=== PATIENT | male | born 1985 | race African-American/Black ===

== ENCOUNTER 2021-05-20 21:32 | Emergency (ER) | payer MEDICAID ==
[2021-05-20 22:59] LABS: ANION GAP 11.4 mEq/L (7-13)
--- NOTE | 2021-05-20 23:08 | EDM.PDOC ---
ED HPI GENERAL MEDICAL PROBLEM - General Chief Complaint: Fever Stated Complaint: FEVER,MUCLE ACHES Time Seen by Provider: 05/20/21 22:46 Source of Information: Reports: Patient, RN, RN Notes Reviewed History Limitations: Reports: No Limitations - History of Present Illness INITIAL COMMENTS - FREE TEXT/NARRATIVE: Ash is a 35 y/o male with a history of HTN and diabetes mellitus Type II who presents to the ED via personal vehicle with complaint of muscle aches and fever. The patient reports his symptoms began two days ago and have progressively worsened in that time. Additionally, he notes transient dry cough and left lateral neck pain with left lateral rotation. The patient notes his Tmax was today upon triage with 102, previous temperature was 101 this afternoon. He denies headache, vision changes, sore throat, sinus congestions, chest pain/pressure, shortness of breath, nausea, vomiting, abdominal pain, diarrhea, constipation, or dysuria. He has taken no medications for his symptoms. The patient notes he is prescribed Lisinopril which he has not been taking. - Related Data Allergies Allergy/AdvReac Type Severity Reaction Status Date / Time No Known Allergies Allergy Verified 05/20/21 22:15 Past Medical History Cardiovascular History: Reports: High Cholesterol, Hypertension Endocrine/Metabolic History: Reports: Diabetes, Type II Social & Family History - Tobacco Use Tobacco Use Status *Q: Never Tobacco User Second Hand Smoke Exposure: Yes ED ROS GENERAL - Review of Systems Review Of Systems: Comprehensive ROS is negative, except as noted in HPI. ED EXAM, GENERAL - Physical Exam Exam: See Below Exam Limited By: No Limitations General Appearance: Alert, No Apparent Distress Eye Exam: Bilateral Eye: EOMI, Normal Inspection, PERRL (3mm) Ears: Normal External Exam, Normal Canal, Hearing Grossly Normal, Normal TMs Ear Exam: Bilateral Ear: Auricle Normal, Canal Normal, TM normal Nose: Normal Inspection, Normal Mucosa, No Blood Throat/Mouth: Normal Voice, No Airway Compromise. No: Normal Oropharynx (Dry mucous membranes) Head: Atraumatic, Normocephalic Neck: Normal Inspection, Supple, Non-Tender, Full Range of Motion. No: Lymphadenopathy (L), Lymphadenopathy (R) Respiratory/Chest: No Respiratory Distress, Lungs Clear, Normal Breath Sounds, No Accessory Muscle Use, Chest Non-Tender. No: Crackles, Rales, Rhonchi, Wheezing, Stridor Cardiovascular: Normal Peripheral Pulses, Regular Rate, Rhythm, No Edema, No Gallop, No JVD, No Murmur, No Rub, Tachycardia Peripheral Pulses: 2+: Radial (L), Radial (R) GI/Abdominal: Normal Bowel Sounds, Soft, Non-Tender, No Distention, No Abnormal Bruit, No Mass, Pelvis Stable (Male) Exam: Deferred Rectal (Males) Exam: Deferred Back Exam: Normal Inspection, Full Range of Motion Extremities: Normal Inspection, Normal Range of Motion, Non-Tender, No Pedal Edema, Normal Capillary Refill Neurological: Alert, Oriented, CN II-XII Intact, Normal Cognition, Normal Gait, No Motor/Sensory Deficits Psychiatric: Normal Affect, Normal Mood Skin Exam: Warm, Dry, Intact, Normal Color, No Rash. No: Cyanosis, Jaundice, Mottled, Pallor Lymphatic: No Adenopathy Course - Vital Signs Last Recorded V/S: Last Vital Signs Temp 102.3 F H 05/20/21 22:07 Pulse 113 H 05/20/21 22:07 Resp 20 05/20/21 22:07 BP 181/111 H 05/20/21 22:07 Pulse Ox 98 05/20/21 22:07 - Orders/Labs/Meds Labs: Laboratory Tests 05/20/21 05/20/21 05/20/21 Range/Units 21:55 22:30 22:30 WBC 5.8 (5.0-10.0) 10^3/uL RBC 5.14 (4.6-6.2) 10^6/uL Hgb 15.4 (14.0-18.0) g/dL Hct 46.1 (40.0-54.0) % MCV 89.7 (80-100) fL MCH 30.0 (27.0-34.0) pg MCHC 33.4 (33.0-35.0) g/dL Plt Count 183 (150-450) 10^3/uL Neut % (Auto) 58.0 (42.2-75.2) % Lymph % (Auto) 25.1 (20.5-50.1) % [place] % (Auto) 16.4 H (2-8) % Eos % (Auto) 0.2 L (1.0-3.0) % Baso % (Auto) 0.3 (0.0-1.0) % Sodium 138 (136-145) mmol/L Potassium 3.4 L (3.5-5.1) mmol/L Chloride 100 (98-107) mmol/L Carbon Dioxide 30 (21-32) mmol/L Anion Gap 11.4 (7-13) mEq/L BUN 8 (7-18) mg/dL Creatinine 1.39 H (0.70-1.30) mg/dL Est Cr Clr Drug Dosing 84.60 mL/min Estimated GFR (MDRD) 57 BUN/Creatinine Ratio 5.8 (No establ ref range) Glucose 306 H (70-99) mg/dL Calcium 8.1 L (8.5-10.1) mg/dL Total Bilirubin 1.0 (0.2-1.0) mg/dL AST 20 (15-37) U/L ALT 28 (16-63) U/L Alkaline Phosphatase 65 (46-116) U/L C-Reactive Protein 0.5 (0.0-0.9) mg/dL Total Protein 7.8 (6.4-8.2) g/dL Albumin 3.4 (3.4-5.0) g/dL Globulin 4.4 Albumin/Globulin Ratio 0.8 SARS-CoV-2 RNA (LEO) Positive H (NEGATIVE) - Re-Assessments/Exams Free Text/Narrative Re-Assessment/Exam: 05/20/21 COVID test sent. Labs pending. Recheck of patient's blood pressure 166/98. Findings of examination and lab work reviewed with patient. Patient instructed to start previously prescribed Lisinopril (he states he has this medication at home). Supportive cares for COVID-19 infection discussed. Red flag signs and symptoms which would warrant immediate reevaluation reviewed. Patient verbalized understanding and agreement with the plan of care. Departure - Departure Time of Disposition: 23:11 Disposition: Home, Self-Care 01 Condition: Fair Clinical Impression: COVID-19 virus infection Hyperglycemia due to type 2 diabetes mellitus Qualifiers: Diabetes mellitus terminal operator insulin use: without terminal operator use Qualified Code(s): E11.65 - Type 2 diabetes mellitus with hyperglycemia Hypertension Qualifiers: Hypertension type: primary hypertension Qualified Code(s): I10 - Essential (primary) hypertension - Discharge Information *PRESCRIPTION DRUG MONITORING PROGRAM REVIEWED*: Not Applicable *COPY OF PRESCRIPTION DRUG MONITORING REPORT IN PATIENT RIDGE: Not Applicable Instructions: COVID-19 Frequently Asked Questions, COVID-19 Vaccine Information, Hyperglycemia, [id number], COVID-19: Quarantine vs. Isolation - [facility] (06/26/2020), COVID-19: What to Do If You Are Sick- [facility] (09/24/2020) Forms: ED Department Discharge Additional Instructions: 1.) Take your Lisinopril, as previously prescribed. 2.) Drink plenty of water to stay hydrated. 3.) You may take ibuprofen (Motrin/Advil) 400mg every six hours, as muscle aches and fever persist. You may also take acetaminophen (Tylenol) 650mg every six hours, as muscle aches and fever persist. You may stagger these medications so you are receiving a dose every three hours. 4.) Continue to monitor your blood sugars, as per previously prescribed. 5.) Return to the emergency department with any persistent fever despite medication, chest pain, significant shortness of breath, or inability to eat/drink. Sepsis Event Note (ED) - Evaluation Sepsis Screening Result: No Definite Risk - Focused Exam Vital Signs: Vital Signs Temp Pulse Resp BP Pulse Ox 05/20/21 22:07 102.3 F H 113 H 20 181/111 H 98
== END 2021-05-20 23:41 | disposition home or self-care (01) ==
LOC: DL.ED 21:32
DX: U07.1 COVID-19 (principal); E11.65 Type 2 diabetes mellitus with hyperglycemia; I10 Essential (primary) hypertension
CPT/HCPCS: 36415; 80053; 85025; 86140; 99284; U0002

== ENCOUNTER 2021-05-25 07:07 | Emergency (ER) | payer MEDICAID ==
[2021-05-25] MEDS ORDERED: Ondansetron 4 MG/2 ML SDV IVPUSH ONE (07:13)
[2021-05-25 07:49] LABS: ANION GAP 12.7 mEq/L (7-13); CHLORIDE,CL 97 mmol/L (98-107); SODIUM,NA 132 mmol/L (136-145)
--- NOTE | 2021-05-25 08:25 | EDM.PDOC ---
ED HPI GENERAL MEDICAL PROBLEM - General Chief Complaint: Fever Stated Complaint: COMPLICATIONS FROM COVID Time Seen by Provider: 05/25/21 08:00 Source of Information: Reports: Patient History Limitations: Reports: No Limitations - History of Present Illness INITIAL COMMENTS - FREE TEXT/NARRATIVE: This 35 yo male patient reports to the ED due to generalized body aches, frequent fevers and a positive COVID test on 05/20/21. The patient reports he has been taking Tylenol and ibuprofen every 3 hours for temporary fever relief. The patient reports he was planning on getting vaccinated last week, but started to get symptoms prior to vaccination. The patient tested and his were discussing the patient getting further treatments including monoclonal antibodies. 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, NSAIDS - Related Data Allergies Allergy/AdvReac Type Severity Reaction Status Date / Time No Known Allergies Allergy Verified 05/25/21 09:48 Home Meds: Home Meds Glimepiride 4 mg PO WITHBREAKFAST 05/25/21 [History] lisinopriL [Lisinopril] 10 mg PO DAILY 05/25/21 [History] metFORMIN [Glucophage] 1,000 mg PO BIDMEALS 05/25/21 [History] Past Medical History Cardiovascular History: Reports: High Cholesterol, Hypertension Endocrine/Metabolic History: Reports: Diabetes, Type II Social & Family History - Family History Family Medical History: No Pertinent Family History - Tobacco Use Tobacco Use Status *Q: Never Tobacco User - Caffeine Use Caffeine Use: Reports: None - Recreational Drug Use Recreational Drug Use: No ED ROS GENERAL - Review of Systems Review Of Systems: Comprehensive ROS is negative, except as noted in HPI. ED EXAM, GENERAL - Physical Exam Exam: See Below Exam Limited By: No Limitations General Appearance: Alert, Moderate Distress Eye Exam: Bilateral Eye: EOMI, Normal Inspection, PERRL Ears: Normal External Exam, Normal Canal, Hearing Grossly Normal, Normal TMs Nose: Normal Inspection, Normal Mucosa, No Blood Throat/Mouth: Normal Inspection, Normal Lips, Normal Teeth, Normal Gums, Normal Oropharynx, Normal Voice, No Airway Compromise Head: Atraumatic, Normocephalic Neck: Normal Inspection, Supple, Non-Tender, Full Range of Motion Respiratory/Chest: No Respiratory Distress, Lungs Clear, Normal Breath Sounds, No Accessory Muscle Use, Chest Non-Tender Cardiovascular: Normal Peripheral Pulses, Regular Rate, Rhythm, No Edema, No Gallop, No JVD, No Murmur, No Rub GI/Abdominal: Normal Bowel Sounds, Soft, Non-Tender, No Organomegaly, No Distention, No Abnormal Bruit, No Mass (Male) Exam: Deferred Rectal (Males) Exam: Deferred Back Exam: Normal Inspection, Full Range of Motion, NT Extremities: Normal Inspection, Normal Range of Motion, Non-Tender, Normal Capillary Refill, No Pedal Edema Neurological: Alert, Oriented, CN II-XII Intact, Normal Cognition, Normal Gait, Normal Reflexes, No Motor/Sensory Deficits Psychiatric: Normal Affect, Normal Mood Skin Exam: Warm, Dry, Intact, Normal Color, No Rash Lymphatic: No Adenopathy Course - Vital Signs Last Recorded V/S: Last Vital Signs Temp 97.6 F 05/25/21 10:28 Pulse 88 05/25/21 10:28 Resp 18 05/25/21 10:28 BP 126/75 05/25/21 10:28 Pulse Ox 99 05/25/21 10:28 - Orders/Labs/Meds Orders: Active Orders 24 hr Category Date Time Status CULTURE BLOOD [BC] Stat Lab 05/25/21 07:20 Results Famotidine [Pepcid] Med 05/25/21 08:30 Active 20 mg IVPUSH ASDIRECTED PRN Sodium Chloride 0.9% [Saline Flush] Med 05/25/21 08:30 Active 30 ml FLUSH ASDIRECTED diphenhydrAMINE [Benadryl] Med 05/25/21 08:30 Active 50 mg IVPUSH ASDIRECTED PRN methylPREDNISolone Sod Succ [Solu-MEDROL] Med 05/25/21 08:30 Active 125 mg IVPUSH ASDIRECTED PRN Medication Orders Diphenhydramine HCl (Diphenhydramine 50 Mg/Ml Sdv) 50 mg IVPUSH ASDIRECTED PRN PRN Reason: hypersensitivity reaction Famotidine (Famotidine 20 Mg/2 Ml Sdv) 20 mg IVPUSH ASDIRECTED PRN PRN Reason: hypersensitivity reaction Methylprednisolone Sodium Succinate (Methylprednisolone Sodium Succinate 125 Mg/2 Ml Sdv) 125 mg IVPUSH ASDIRECTED PRN PRN Reason: hypersensitivity reaction Sodium Chloride (Sodium Chloride 0.9% 10 Ml Syringe) 30 ml FLUSH ASDIRECTED MERLE Last Admin: 05/25/21 09:28 Dose: 30 ml Documented by: GLEN Labs: Laboratory Tests 05/25/21 05/25/21 05/25/21 Range/Units 07:20 07:20 07:20 WBC 3.4 L (5.0-10.0) 10^3/uL RBC 5.17 (4.6-6.2) 10^6/uL Hgb 15.4 (14.0-18.0) g/dL Hct 45.7 (40.0-54.0) % MCV 88.4 (80-100) fL MCH 29.8 (27.0-34.0) pg MCHC 33.7 (33.0-35.0) g/dL Plt Count 142 L (150-450) 10^3/uL Neut % (Auto) 64.0 (42.2-75.2) % Lymph % (Auto) 24.0 (20.5-50.1) % [place] % (Auto) 11.4 H (2-8) % Eos % (Auto) 0.3 L (1.0-3.0) % Baso % (Auto) 0.3 (0.0-1.0) % Sodium 132 L (136-145) mmol/L Potassium 3.7 (3.5-5.1) mmol/L Chloride 97 L (98-107) mmol/L Carbon Dioxide 26 (21-32) mmol/L Anion Gap 12.7 (7-13) mEq/L BUN 9 (7-18) mg/dL Creatinine 1.18 (0.70-1.30) mg/dL Est Cr Clr Drug Dosing 94.08 mL/min Estimated GFR (MDRD) > 60 BUN/Creatinine Ratio 7.6 (No establ ref range) Glucose 216 H (70-99) mg/dL Lactic Acid 1.1 (0.4-2.0) mmol/L Calcium 8.2 L (8.5-10.1) mg/dL Total Bilirubin 1.3 H (0.2-1.0) mg/dL AST 31 (15-37) U/L ALT 27 (16-63) U/L Alkaline Phosphatase 62 (46-116) U/L Total Protein 8.0 (6.4-8.2) g/dL Albumin 3.2 L (3.4-5.0) g/dL Globulin 4.8 Albumin/Globulin Ratio 0.67 Meds: Medications Generic Name Dose Route Start Last Admin Trade Name Freq PRN Reason Stop Dose Admin Diphenhydramine HCl 50 mg 05/25/21 08:30 Diphenhydramine 50 Mg/Ml Sdv IVPUSH ASDIRECTED PRN hypersensitivity reaction Famotidine 20 mg 05/25/21 08:30 Famotidine 20 Mg/2 Ml Sdv IVPUSH ASDIRECTED PRN hypersensitivity reaction Methylprednisolone Sodium Succinate 125 mg 05/25/21 08:30 Methylprednisolone Sodium Succinate 125 Mg/2 Ml Sdv IVPUSH ASDIRECTED PRN hypersensitivity reaction Sodium Chloride 30 ml 05/25/21 08:30 05/25/21 09:28 Sodium Chloride 0.9% 10 Ml Syringe FLUSH 30 ml ASDIRECTED MERLE Administration Discontinued Medications Generic Name Dose Route Start Last Admin Trade Name Freq PRN Reason Stop Dose Admin Bamlanivimab 700 mg/ 160 mls @ 310 mls/hr 05/25/21 08:30 05/25/21 08:56 Etesevimab 1,400 mg/ Sodium IV 05/25/21 09:00 310 mls/hr Chloride ONETIME ONE Administration Ondansetron HCl 4 mg 05/25/21 07:13 05/25/21 07:50 Ondansetron 4 Mg/2 Ml Sdv IVPUSH 05/25/21 07:14 4 mg ONETIME ONE Administration - Re-Assessments/Exams Free Text/Narrative Re-Assessment/Exam: 05/25/21 08:25 Discussed the potential benefits of monoclonal antibody treatment. Since the patient has preexisting medical conditions (diabetes and hypertension), the patient does qualify at this time for the treatment. The patient is in agreement to receive the treatment during this visit. The patient was also in contact with his and both agreed to the monoclonal antibody treatment. Departure - Departure Time of Disposition: 10:40 Disposition: Home, Self-Care 01 Condition: Fair Clinical Impression: COVID-19 virus infection - Discharge Information *PRESCRIPTION DRUG MONITORING PROGRAM REVIEWED*: Not Applicable *COPY OF PRESCRIPTION DRUG MONITORING REPORT IN PATIENT RIDGE: Not Applicable Instructions: Bamlanivimab Solution for Injection, Etesevimab Solution for Injection Forms: ED Department Discharge Additional Instructions: Refer to medication handouts. Social isolation as recommended by the CDC. Take medication as before. Notify provider or go to the emergency room if allergic reaction. No Covid vaccines for 90 days after this infusion. Sepsis Event Note (ED) - Evaluation Sepsis Screening Result: No Definite Risk - Focused Exam Vital Signs: Vital Signs Temp Pulse Resp BP Pulse Ox 05/25/21 10:28 97.6 F 88 18 126/75 99 05/25/21 10:15 85 127/75 97 05/25/21 10:01 85 125/73 94 L 05/25/21 09:45 83 127/74 97 05/25/21 09:30 97.2 F 85 20 128/75 98 05/25/21 09:15 97.1 F 86 16 124/75 98 05/25/21 09:00 97 F 89 12 121/70 98 05/25/21 08:46 96.8 F L 95 12 130/78 97 05/25/21 07:38 97.1 F 101 H 16 108/71 98 - My Orders Last 24 Hours: My Active Orders 05/25/21 07:20 CULTURE BLOOD [BC] Stat 05/25/21 08:30 Famotidine [Pepcid] 20 mg IVPUSH ASDIRECTED PRN Sodium Chloride 0.9% [Saline Flush] 30 ml FLUSH ASDIRECTED diphenhydrAMINE [Benadryl] 50 mg IVPUSH ASDIRECTED PRN methylPREDNISolone Sod Succ [Solu-MEDROL] 125 mg IVPUSH ASDIRECTED PRN - Assessment/Plan Last 24 Hours: My Active Orders 05/25/21 07:20 CULTURE BLOOD [BC] Stat 05/25/21 08:30 Famotidine [Pepcid] 20 mg IVPUSH ASDIRECTED PRN Sodium Chloride 0.9% [Saline Flush] 30 ml FLUSH ASDIRECTED diphenhydrAMINE [Benadryl] 50 mg IVPUSH ASDIRECTED PRN methylPREDNISolone Sod Succ [Solu-MEDROL] 125 mg IVPUSH ASDIRECTED PRN
[2021-05-25] MEDS ORDERED: methylPREDNISolone Sodium Succinate 125 MG/2 ML SDV IVPUSH PRN (08:30)
[2021-05-25] MEDS ORDERED: diphenhydrAMINE 50 MG/ML SDV IVPUSH PRN (08:30)
[2021-05-25] MEDS ORDERED: Sodium Chloride 0.9% 10 ML Syringe FLUSH SCH (08:30)
[2021-05-25] MEDS ORDERED: Famotidine 20 MG/2 ML SDV IVPUSH PRN (08:30)
[2021-05-25] MEDS ORDERED: Bamlanivimab 700 MG, ETESEVIMAB 1,400 MG in Sodium Chloride 0.9% 100 ML IV ONE (08:30)
== END 2021-05-25 10:40 | disposition home or self-care (01) ==
LOC: DL.ED 07:07
DX: U07.1 COVID-19 (principal); E78.00 Pure hypercholesterolemia, unspecified; I10 Essential (primary) hypertension; E11.9 Type 2 diabetes mellitus without complications; Z79.84 Long term (current) use of oral hypoglycemic drugs; Z79.899 Other long term (current) drug therapy
CPT/HCPCS: 36415; 80053; 83605; 85025; 87040; 96374; 99283; J2405; M0245; Q0245; 87077; 87186

== ENCOUNTER 2021-05-26 00:39 | Emergency (ER) | payer MEDICAID ==
[2021-05-26] MEDS ORDERED: Ondansetron 4 MG Tab.DIS PO ONE (00:40)
[2021-05-26 02:40] LABS: ANION GAP 11.5 mEq/L (7-13); CHLORIDE,CL 99 mmol/L (98-107); SODIUM,NA 135 mmol/L (136-145)
--- NOTE | 2021-05-26 03:23 | EDM.PDOC ---
ED HPI GENERAL MEDICAL PROBLEM - General Chief Complaint: Headache Stated Complaint: COVID POS. CANT KEEP TEMP DOWN Time Seen by Provider: 05/26/21 01:10 Source of Information: Reports: Patient History Limitations: Reports: No Limitations - History of Present Illness INITIAL COMMENTS - FREE TEXT/NARRATIVE: C/o headache and fever past 3-4 days. Diagnosed with COVID on Tuesday. mild, nausea , denies vomiting. Taking tylenol and ibuprofen, Right Posterior Headache Pain Score (Numeric/FACES): 8 - Related Data Allergies Allergy/AdvReac Type Severity Reaction Status Date / Time No Known Allergies Allergy Verified 05/26/21 01:19 Home Meds: Home Meds Glimepiride 4 mg PO WITHBREAKFAST 05/25/21 [History] lisinopriL [Lisinopril] 10 mg PO DAILY 05/25/21 [History] metFORMIN [Glucophage] 1,000 mg PO BIDMEALS 05/25/21 [History] Past Medical History - Past Health History Medical/Surgical History: Denies Medical/Surgical History Cardiovascular History: Reports: High Cholesterol, Hypertension Endocrine/Metabolic History: Reports: Diabetes, Type II - Infectious Disease History Infectious Disease History: Reports: Novel Coronavirus Social & Family History - Family History Family Medical History: No Pertinent Family History - Tobacco Use Tobacco Use Status *Q: Never Tobacco User - Caffeine Use Caffeine Use: Reports: None - Recreational Drug Use Recreational Drug Use: No ED ROS GENERAL - Review of Systems Review Of Systems: Comprehensive ROS is negative, except as noted in HPI. - Physical Exam Exam: See Below Exam Limited By: No Limitations General Appearance: Alert, Mild Distress Eye Exam: Bilateral Eye: EOMI Ears: Normal External Exam Nose: Normal Inspection Throat/Mouth: Normal Inspection, Normal Oropharynx Head Exam: Atraumatic, Normocephalic Neck: Normal Inspection, Full Range of Motion. No: Lymphadenopathy (L), Lymphadenopathy (R) Respiratory/Chest: No Respiratory Distress, Lungs Clear, Normal Breath Sounds Cardiovascular: Normal Peripheral Pulses, Regular Rate, Rhythm GI/Abdominal: Normal Bowel Sounds, Soft Neuro Exam (Abbreviated): Alert, Oriented, Normal Cognition, Normal Gait, Normal Reflexes, No Motor/Sensory Deficits Extremities: Normal Inspection Psychiatric: Flat Affect Skin Exam: Warm, Dry, Intact Course - Vital Signs Last Recorded V/S: Last Vital Signs Temp 97.1 F 05/26/21 04:00 Pulse 86 05/26/21 04:00 Resp 20 05/26/21 04:00 BP 115/74 05/26/21 04:00 Pulse Ox 94 L 05/26/21 04:00 - Orders/Labs/Meds Labs: Laboratory Tests 05/26/21 05/26/21 Range/Units 02:05 02:05 WBC 4.5 L (5.0-10.0) 10^3/uL RBC 4.84 (4.6-6.2) 10^6/uL Hgb 14.3 (14.0-18.0) g/dL Hct 43.1 (40.0-54.0) % MCV 89.0 (80-100) fL MCH 29.5 (27.0-34.0) pg MCHC 33.2 (33.0-35.0) g/dL Plt Count 149 L (150-450) 10^3/uL Neut % (Auto) 65.7 (42.2-75.2) % Lymph % (Auto) 25.9 (20.5-50.1) % [place] % (Auto) 8.2 H (2-8) % Eos % (Auto) 0.0 L (1.0-3.0) % Baso % (Auto) 0.2 (0.0-1.0) % Sodium 135 L (136-145) mmol/L Potassium 3.5 (3.5-5.1) mmol/L Chloride 99 (98-107) mmol/L Carbon Dioxide 28 (21-32) mmol/L Anion Gap 11.5 (7-13) mEq/L BUN 9 (7-18) mg/dL Creatinine 1.28 (0.70-1.30) mg/dL Est Cr Clr Drug Dosing 86.73 mL/min Estimated GFR (MDRD) > 60 BUN/Creatinine Ratio 7.0 (No establ ref range) Glucose 154 H (70-99) mg/dL Calcium 7.9 L (8.5-10.1) mg/dL Total Bilirubin 1.1 H (0.2-1.0) mg/dL AST 39 H (15-37) U/L ALT 30 (16-63) U/L Alkaline Phosphatase 58 (46-116) U/L Total Protein 7.7 (6.4-8.2) g/dL Albumin 3.0 L (3.4-5.0) g/dL Globulin 4.7 Albumin/Globulin Ratio 0.64 Meds: Medications Discontinued Medications Generic Name Dose Route Start Last Admin Trade Name Lyric PRN Reason Stop Dose Admin Ondansetron HCl Confirm 05/26/21 03:53 05/26/21 04:05 Ondansetron 4 Mg Tab.Dis Administered 05/26/21 03:54 12 mg Dose Administration 12 mg .ROUTE .STK-MED ONE Departure - Departure Time of Disposition: 03:30 Disposition: Home, Self-Care 01 Condition: Good Clinical Impression: COVID Headache Qualifiers: Headache type: unspecified Headache chronicity pattern: unspecified pattern Intractability: not intractable Qualified Code(s): R51.9 - Headache, unspecified - Discharge Information *PRESCRIPTION DRUG MONITORING PROGRAM REVIEWED*: No *COPY OF PRESCRIPTION DRUG MONITORING REPORT IN PATIENT RIDGE: No Instructions: COVID-19 Frequently Asked Questions, Dehydration, Adult, [id number] Referrals: PCP,None [Primary Care Provider] - Forms: ED Department Discharge Additional Instructions: rest fluids diet as tolerated tylenol every 4 hours as needed for discomfort/ fever Use ibuprofen sparingly
[2021-05-26] MEDS ORDERED: Ondansetron 4 MG Tab.DIS ONE (03:53)
== END 2021-05-26 04:10 | disposition home or self-care (01) ==
LOC: DL.ED 00:39
DX: U07.1 COVID-19 (principal); E78.00 Pure hypercholesterolemia, unspecified; I10 Essential (primary) hypertension; Z79.899 Other long term (current) drug therapy; Z79.84 Long term (current) use of oral hypoglycemic drugs
CPT/HCPCS: 36415; 80053; 85025; 99284; A9270

== ENCOUNTER 2021-05-28 17:14 | Emergency (ER) | payer MEDICAID | END 2021-05-28 20:41 | disposition left against medical advice (07) | LOC: DL.ED 17:14 | DX: R06.02 Shortness of breath (principal); Z53.21 Procedure and treatment not carried out due to patient leaving prior to being seen by health care provider ==

== ENCOUNTER 2025-06-08 09:44 | Emergency (ER) | payer SELFPAY ==
[2025-06-08] MEDS: Take Home: Amoxicillin 500 MG, 6 Cap Pack PO ONE (10:36)
== END 2025-06-08 10:37 | disposition home or self-care (01) ==
LOC: DL.ED 09:44
DX: J01.11 Acute recurrent frontal sinusitis (principal); I10 Essential (primary) hypertension; E78.00 Pure hypercholesterolemia, unspecified; E11.9 Type 2 diabetes mellitus without complications; Z79.84 Long term (current) use of oral hypoglycemic drugs; Z79.899 Other long term (current) drug therapy; Z86.16 Personal history of COVID-19
CPT/HCPCS: 99283; A9270